=== PATIENT | male | born 1980 | race Caucasian/White ===

== ENCOUNTER 2023-08-31 23:44 | Emergency (ER) | payer MEDICAID ==
[~2023-08-31] VITALS: Ht 175.3 cm; Wt 70.0 kg
[2023-08-31 23:51] VITALS: BP 138/80; PULSE 80; RESP 19; O2SAT 98
[2023-09-01] MEDS ORDERED: ACETAMINOPHEN 325MG TABLET PO ONE (01:15)
[2023-09-01 03:20] VITALS: TEMP 98.5
[2023-09-01] MEDS ORDERED: IBUP-2029 MT (05:03)
[2023-09-01] MEDS ORDERED: GABA300C MT (05:03)
== END 2023-09-01 05:34 | disposition home or self-care (01) ==
LOC: ER 23:44
DX: M79.89 Other specified soft tissue disorders (principal)
CPT/HCPCS: 73630; 93970; 99284